=== PATIENT | male | born 1945 | race Two or more races ===

== ENCOUNTER 2020-09-12 21:24 | Emergency (ER) | payer MEDICARE, OTHER ==
[~2020-09-12] VITALS: Ht 172.7 cm; Wt 88.6 kg
[2020-09-12 22:19] LABS: BASOPHILS % (AUTO) 0 % (0-1); EOSINOPHILS % (AUTO) 3 % (1-7); LYMPHOCYTES % (AUTO) 23 % (22-44); MEAN CORPUSCULAR HEMOGLOBIN 33.9 pg (27.5-34.5); MEAN CORPUSCULAR HGB CONC 33.6 g/dL (33.2-36.2); MEAN PLATELET VOLUME 8.4 fL (7.4-10.4); MONOCYTES % (AUTO) 6 % (2-9); NEUTROPHILS % (AUTO) 68 % (42-75); PLATELET COUNT 189 x10^3/uL (130-400); RED BLOOD COUNT 4.15 x10^6/uL (4.38-5.82); RED CELL DISTRIBUTION WIDTH 14.5 % (9.4-14.8)
[2020-09-12 22:24] LABS: ANION GAP 10 mmol/L (5-15); CALCIUM 7.1 mg/dL (8.5-10.1); CHLORIDE 101 mmol/L (98-107); CREATININE 0.52 mg/dL (0.7-1.3)
[2020-09-12 22:28] LABS: TROPONIN I < 0.015 ng/mL (0.000-0.045)
[2020-09-12 22:57] VITALS: BP 108/55
== END 2020-09-13 00:30 | disposition home or self-care (01) ==
LOC: ED 23:30
DX: R55 Syncope and collapse (principal); I45.19 Other right bundle-branch block; I10 Essential (primary) hypertension; E11.9 Type 2 diabetes mellitus without complications
CPT/HCPCS: 36415; 71045; 80048; 82040; 84484; 85025; 93005; 99285